=== PATIENT | male | born 1975 | race Caucasian/White ===

== ENCOUNTER 2016-09-22 12:50 | Emergency (ER) | payer SELFPAY ==
[~2016-09-22] VITALS: Ht 167.6 cm; Wt 68.0 kg
[~2016-09-22 12:50] MED LIST: HYDR-2758 PO; HYDR-971 PO; ONDA4TAB10 SL
[2016-09-22] MEDS ORDERED: IV NORMAL SALINE 1000ML BAG 1,000 ML IV SCH (13:20)
--- NOTE | 2016-09-22 13:25 | PHYS DOC ---
Past Medical History Past Medical History: Bipolar, Migraines, Other Additional Past Medical Histor: hx meth use, gastritis, hernia Past Surgical History: Other Additional Past Surgical Histo: L hand, dental Smoking: Cigarettes Alcohol Use: Occasionally Drug Use: Marijuana, Methamphetamine, Other Adult General Chief Complaint Chief Complaint: ABDOMINAL PAIN HPI HPI She is a 41-year-old male who lives his parents who presents with nausea and vomiting and abdominal pain that began early this morning. The pain began suddenly sharp in the right lower quadrant without radiation. He has not had as he claims more than 20 episodes of vomiting nonbilious nonbloody without fevers , chills, diarrhea or loose stools. His migration of his symptoms or back pain. He denies any lightheaded or dizziness, denies any sick contacts, recent travel outside the country, new IV or illicit drug use. Patient also denies having poultry, failing reptiles or eating raw food. Patient says she's had pain around his umbilicus before but nothing like this nothing localized to the right lower quadrant. He has no appetite and feels very anxious. He was brought in by his father. Review of Systems Review of Systems Constitutional: Denies fever or chills [] Eyes: Denies change in visual acuity, redness, or eye pain [] HENT: Denies nasal congestion or sore throat [] Respiratory: Denies cough or shortness of breath [] Cardiovascular: No additional information not addressed in HPI [] GI: She does quit of abdominal pain nausea vomiting without bloody stools or diarrhea no melena or constipation. : Denies dysuria or hematuria [] Musculoskeletal: Denies back pain or joint pain [] Integument: Denies rash or skin lesions [] Neurologic: Denies headache, focal weakness or sensory changes [] Endocrine: Denies polyuria or polydipsia [] Current Medications Current Medications Current Medications Medications (Trade) Dose Ordered Sig/Reina Start Time Stop Time Status Last Admin Dose Admin Hydromorphone HCl (Dilaudid) 1 mg 1X ONCE 09/22/16 16:45 09/22/16 16:45 DC 09/22/16 16:24 1 MG Info (Do NOT chart on this entry -- for MONITORING) 1 each PRN DAILY PRN 09/22/16 14:00 09/22/16 16:38 DC Iohexol (Omnipaque 300 Mg/ml) 75 ml 1X ONCE 09/22/16 14:00 09/22/16 14:01 DC 09/22/16 14:17 75 ML Ondansetron HCl (Zofran) 4 mg 1X ONCE 09/22/16 14:45 09/22/16 14:46 DC Sodium Chloride (Normal Saline Flush) 10 ml QSHIFT PRN 09/22/16 13:30 09/22/16 16:38 DC 09/22/16 13:41 10 ML Allergies Allergies Allergies Coded Allergies Type Severity Reaction Last Updated Verified Benzodiazepines Allergy Unknown 09/26/13 No Penicillins Allergy Unknown 09/26/13 No codeine Allergy Unknown 03/04/16 No cyclobenzaprine Allergy Unknown 09/26/13 No Uncoded Allergies Type Severity Reaction Last Updated Verified steroids Adverse Reaction Unknown 09/26/13 Physical Exam Physical Exam Constitutional: Patient is relatively thin with poor dentition with some temporal wasting. He has some mild truncal obesity HENT: Normocephalic, atraumatic, bilateral external ears normal, dry mucous members with poor dentition. No oral exudates, nose normal. [] Eyes: PERRLA, EOMI, conjunctiva normal, no discharge. [] Neck: Normal range of motion, no tenderness, supple, no stridor. [] Cardiovascular:Heart rate regular rhythm, no murmur [] Lungs & Thorax: Bilateral breath sounds clear to auscultation [] Abdomen: Patient is elevated bowel sounds he has tenderness throughout the right lower quadrant and the epigastric region. No voluntary guarding rebound or organomegaly. He has no Rondon El sign no Pritchett's or McBurney's point tenderness to palpation. Skin: Warm, dry, no erythema, no rash. [] Back: No tenderness, no CVA tenderness. [] Extremities: No tenderness, no cyanosis, no clubbing, ROM intact, no edema. [] Neurologic: Alert and oriented X 3, normal motor function, normal sensory function, no focal deficits noted. [] Psychologic: This patient is very anxious mildly hyperventilated. Current Patient Data Vital Signs Vital Signs Date Time Temp Pulse Resp B/P (MAP) Pulse Ox O2 Delivery O2 Flow Rate FiO2 09/22/16 16:24 Room Air 09/22/16 15:41 54 27 129/68 (88) 100 09/22/16 13:02 98.2 98.2 Lab Values Laboratory Tests Test 09/22/16 13:35 09/22/16 15:00 White Blood Count 14.3 x10^3/uL (4.0-11.0) H Red Blood Count 4.89 x10^6/uL (4.30-5.70) Hemoglobin 13.4 g/dL (13.0-17.5) Hematocrit 39.7 % (39.0-53.0) Mean Corpuscular Volume 81 fL (79-100) Mean Corpuscular Hemoglobin 27 pg (25-35) Mean Corpuscular Hemoglobin Concent 34 g/dL (31-37) Red Cell Distribution Width 21.0 % (11.5-14.5) H Platelet Count 553 x10^3/uL (140-400) H Neutrophils (%) (Auto) 85 % (31-73) H Lymphocytes (%) (Auto) 11 % (24-48) L Monocytes (%) (Auto) 4 % (0-9) Eosinophils (%) (Auto) 0 % (0-3) Basophils (%) (Auto) 1 % (0-3) Neutrophils # (Auto) 12.1 x10^3uL (1.8-7.7) H Lymphocytes # (Auto) 1.5 x10^3/uL (1.0-4.8) Monocytes # (Auto) 0.5 x10^3/uL (0.0-1.1) Eosinophils # (Auto) 0.0 x10^3/uL (0.0-0.7) Basophils # (Auto) 0.1 x10^3/uL (0.0-0.2) Platelet Estimate Increased (ADEQUATE) Anisocytosis Mod Sodium Level 142 mmol/L (136-145) Potassium Level 4.0 mmol/L (3.5-5.1) Chloride Level 102 mmol/L (98-107) Carbon Dioxide Level 24 mmol/L (21-32) Anion Gap 16 (6-14) H Blood Urea Nitrogen 17 mg/dL (8-26) Creatinine 1.2 mg/dL (0.7-1.3) Estimated GFR (Cockcroft-Gault) 66.7 BUN/Creatinine Ratio 14 (6-20) Glucose Level 142 mg/dL (70-99) H Calcium Level 9.9 mg/dL (8.5-10.1) Total Bilirubin 0.5 mg/dL (0.2-1.0) Aspartate Amino Transferase (AST) 23 U/L (15-37) Alanine Aminotransferase (ALT) 19 U/L (16-63) Alkaline Phosphatase 87 U/L (46-116) Total Protein 8.1 g/dL (6.4-8.2) Albumin 4.7 g/dL (3.4-5.0) Albumin/Globulin Ratio 1.4 (1.0-1.7) Lipase 242 U/L (73-393) Urine Color Yellow Urine Clarity Clear Urine pH 8.5 Urine Specific [place] >=1.030 Urine Protein 30 mg/dL (NEG-TRACE) Urine Glucose (UA) Negative mg/dL (NEG) Urine Ketones (Stick) 15 mg/dL (NEG) Urine Blood Negative (NEG) Urine Nitrite Negative (NEG) Urine Bilirubin Negative (NEG) Urine Urobilinogen Dipstick 0.2 mg/dL (0.2 mg/dL) Urine Leukocyte Esterase Negative (NEG) Urine RBC 0 /HPF (0-2) Urine WBC Occ /HPF (0-4) Urine Squamous Epithelial Cells Occ /LPF Urine Bacteria 0 /HPF (0-FEW) Urine Mucus Slight /LPF Laboratory Tests 09/22/16 13:35 Laboratory Tests 09/22/16 13:35 EKG EKG [] Radiology/Procedures Radiology/Procedures [] [address] [place] [address] IMAGING REPORT Signed PATIENT: MANPREET GIFFORD ACCOUNT: [id number] : 1975 LOCATION: ER AGE: 41 SEX: M EXAM STATUS: REG ER ORD. PHYSICIAN: ISAEL COTE MD REASON: lower quadrant abdominal pain that began after vomiting. PROCEDURE: CT ABD PELV W/ IV CONTRST ONLY Indication abdominal pain. Onset today. Vomiting. Axial images through the abdomen and pelvis were obtained. No oral contrast was administered. Approximately 75 cc of Omnipaque 300 was administered intravenously. Note is made of a previous examination 8 years ago. An acute finding in either lung base is not seen. There is a 3 to 4 mm pulmonary nodule in the right lower lobe, image 2 series 2. Follow-up imaging along the lines of the Fleischner criteria should be considered. Nodule is new relative to the previous exam. The liver and spleen appear unremarkable. The gallbladder is largely contracted but otherwise unremarkable. No adrenal or significant renal pathology is seen. There are occasional small bilateral renal calculi. The pancreas appears unremarkable. There is some slight dilatation of small bowel loops. This is nonspecific but could reflect an inflammatory process such as enteritis. A low-grade obstructing process is not entirely excluded. High-grade mechanical obstruction is not suggested on this exam A rudimentary appendix is suggested adjacent to the cecal tip. Imaging findings to suggest appendicitis or absent. IMPRESSION: Mild dilatation of small bowel loops is seen which is nonspecific. This could reflect enteritis. High-grade mechanical obstruction is not seen but a low-grade obstructing process is not entirely excluded Minute bilateral renal calculi 3 to 4 mm pulmonary nodule right lower lobe. Follow-up imaging along the lines of the Fleischner criteria should be considered DICTATED and SIGNED BY: JUDY MARIE MD DATE: 09/22/16 4585 CC: ISAEL COTE MD; NO PCP ~ Course & Med Decision Making Course & Med Decision Making Pertinent Labs and Imaging studies reviewed. (See chart for details) he is a pleasant 41-year-old male was at with nausea vomiting and diarrhea that began is morning with more than 20 episodes of vomiting. Nonbilious nonbloody patient feels dehydrated with diffuse abdominal pain. Now 3:10 PM Patient tells me that their symptoms given during CC are improved. We reviewed labs patient has an elevated white blood cell count but no evidence of hemoconcentration. Patient has an acute phase reactant and platelet count is elevated at 556. Still pending abdomen pelvis CT at this time. Patient abdomen is soft Now 4:[address] abdomen pelvis with the patient which demonstrates signs of enteritis without bowel obstruction, appendicitis, or evidence of diverticulitis. Patient feels markedly better with fluids and antiemetics here in the emergency department he is relieved not have appendicitis. I will discharge him on antiemetics, Bentyl, and antidiarrheal medications with follow-up with his PCP. He also developed some increasing for his anxiety. Impression: Abdominal pain likely secondary to nausea vomiting diarrhea, anxiety Disposition: Discharged home with PCP follow-up in 24-48 hours. Abdominal pain precautions given. Although there is no obvious signs of appendicitis at this time patient given precautions to return of localized pain increased in the right lower quadrant. Patient has fever greater than 102.2 despite treatment or he has no blood in the stool. [] Dragon Disclaimer Dragon Disclaimer This electronic medical record was generated, in whole or in part, using a voice recognition dictation system. Departure Departure Impression: Primary Impression: Abdominal pain Additional Impressions: Nausea & vomiting Diarrhea Disposition: 01 HOME, SELF-CARE Condition: IMPROVED Referrals: NO PCP (PCP) Patient Instructions: Abdominal Pain, Diarrhea, Nausea and Vomiting Additional Instructions: If any new or increasing symptoms or feel any question concerns. I would advise a stay hydrated by forcing herself to drink a lot of fluids much and he can tolerate until he has achieved some clear urine. Please return for any focal tenderness to palpation with fever over the right lower quadrant. Although there is no evidence of appendicitis today this does not mean he can develop in the future. Please return for any question concerns or might have Scripts Ondansetron (ZOFRAN ODT) 4 Mg Tab.rapdis 1 MG PO BID Y for NAUSEA/VOMITING for 7 Days, #10 TAB Prov: ISAEL COTE MD 09/22/16 Loperamide HCl (Imodium A-D) 2 Mg Capsule 2 MG PO QID for 3 Days, #12 CAP Prov: ISAEL COTE MD 09/22/16 Dicyclomine Hcl (BENTYL) 10 Mg Capsule 1 CAP PO TID, #30 CAP 3 Refills Prov: ISAEL COTE MD 09/22/16 Lorazepam (ATIVAN) 1 Mg Tablet 1 MG PO BID for 5 Days, #10 TAB Prov: ISAEL COTE MD 09/22/16 Problem Qualifiers ISAEL COTE MD Sep 22, 2016 13:25
[2016-09-22] MEDS ORDERED: 0.9 % SODIUM CHLORIDE 10 ML DISP.SYRIN. IV PRN (13:30)
[2016-09-22] MEDS ORDERED: ONDANSETRON PF 4 MG/2 ML VIAL. IV ONE ×3 (13:30→14:45)
[2016-09-22] MEDS ORDERED: HYDROmorphone 2 MG/ML VIAL IV/SQ PRN (13:30)
[2016-09-22 13:50] LABS: CALCIUM 9.9 mg/dL (8.5-10.1); CREATININE 1.2 mg/dL (0.7-1.3); GFR 66.7
[2016-09-22 13:53] LABS: BASO # 0.1 x10^3/uL (0.0-0.2); BASO % 1 % (0-3); EOS % 0 % (0-3); HEMATOCRIT 39.7 % (39.0-53.0); HEMOGLOBIN 13.4 g/dL (13.0-17.5); LYMPH # 1.5 x10^3/uL (1.0-4.8); LYMPH % 11 % (24-48); MEAN CORPUSCULAR HEMOGLOBIN 27 pg (25-35); MEAN CORPUSCULAR HGB CONC 34 g/dL (31-37); MEAN CORPUSCULAR VOLUME 81 fL (79-100); MONO % 4 % (0-9); NEUT % 85 % (31-73); PLATELET COUNT 553 x10^3/uL (140-400); RED BLOOD COUNT 4.89 x10^6/uL (4.30-5.70); WHITE BLOOD COUNT 14.3 x10^3/uL (4.0-11.0)
[2016-09-22 13:55] LABS: ALBUMIN 4.7 g/dL (3.4-5.0); ALBUMIN/GLOBULIN RATIO 1.4 (1.0-1.7); TOTAL BILIRUBIN 0.5 mg/dL (0.2-1.0); TOTAL PROTEIN 8.1 g/dL (6.4-8.2)
[2016-09-22] MEDS ORDERED: CONTRAST GIVEN MC PRN (14:00)
[2016-09-22] MEDS ORDERED: IOHEXOL 300 MG/ML 75 ML VIAL IV ONE (14:00)
--- NOTE | 2016-09-22 14:49 | RAD ---
Indication abdominal pain. Onset today. Vomiting. Axial images through the abdomen and pelvis were obtained. No oral contrast was administered. Approximately 75 cc of Omnipaque 300 was administered intravenously. Note is made of a previous examination 8 years ago. An acute finding in either lung base is not seen. There is a 3 to 4 mm pulmonary nodule in the right lower lobe, image 2 series 2. Follow-up imaging along the lines of the Fleischner criteria should be considered. Nodule is new relative to the previous exam. The liver and spleen appear unremarkable. The gallbladder is largely contracted but otherwise unremarkable. No adrenal or significant renal pathology is seen. There are occasional small bilateral renal calculi. The pancreas appears unremarkable. There is some slight dilatation of small bowel loops. This is nonspecific but could reflect an inflammatory process such as enteritis. A low-grade obstructing process is not entirely excluded. High-grade mechanical obstruction is not suggested on this exam A rudimentary appendix is suggested adjacent to the cecal tip. Imaging findings to suggest appendicitis or absent. IMPRESSION: Mild dilatation of small bowel loops is seen which is nonspecific. This could reflect enteritis. High-grade mechanical obstruction is not seen but a low-grade obstructing process is not entirely excluded Minute bilateral renal calculi 3 to 4 mm pulmonary nodule right lower lobe. Follow-up imaging along the lines of the Fleischner criteria should be considered
[2016-09-22 15:10] LABS: BILIRUBIN,URINE NEGATIVE (NEG); GLUCOSE,URINE NEGATIVE (NEG); NITRITE,URINE NEGATIVE (NEG); PH,URINE 8.5; PROTEIN,URINE 30 mg/dL (NEG-TRACE); UROBILINOGEN,URINE 0.2 mg/dL (0.2 mg/dL)
[2016-09-22 15:41] VITALS: BP 129/68
[2016-09-22 15:50] LABS: BACTERIA,URINE 0 /HPF (0-FEW); RBC,URINE 0 /HPF (0-2); SQUAMOUS EPITHELIAL CELL,UR OCC /LPF; WBC,URINE OCC /HPF (0-4)
[2016-09-22 16:01] LABS: PLT ESTIMATE INCREASED (ADEQUATE)
[2016-09-22 16:02] LABS: ANISOCYTOSIS MOD
[2016-09-22] MEDS ORDERED: DICY10CA53 PO (16:23)
[2016-09-22] MEDS ORDERED: LOPE2CAP88 PO (16:23)
[2016-09-22] MEDS ORDERED: ONDA4TAB10 PO (16:23)
[2016-09-22] MEDS ORDERED: LORA-434 PO (16:23)
[2016-09-22] MEDS ORDERED: HYDROmorphone 2 MG/ML VIAL IV ONE (16:45)
== END 2016-09-22 16:32 | disposition home or self-care (01) ==
LOC: ER 12:50
DX: R10.31 Right lower quadrant pain (principal); R10.13 Epigastric pain; R10.84 Generalized abdominal pain; R11.2 Nausea with vomiting, unspecified; R19.7 Diarrhea, unspecified; F31.9 Bipolar disorder, unspecified; G43.909 Migraine, unspecified, not intractable, without status migrainosus; F12.10 Cannabis abuse, uncomplicated; F15.10 Other stimulant abuse, uncomplicated; F17.210 Nicotine dependence, cigarettes, uncomplicated; E66.9 Obesity, unspecified; Z88.8 Allergy status to other drugs, medicaments and biological substances; Z88.0 Allergy status to penicillin; Z88.5 Allergy status to narcotic agent; Z68.24 Body mass index [BMI] 24.0-24.9, adult
CPT/HCPCS: 36415; 74177; 80053; 81001; 83690; 85007; 85027; 96361; 96374; 96375; 96376; 99285; J1170; J2405; J7030; Q9967

== ENCOUNTER 2016-12-19 19:01 | Emergency (ER) | payer SELFPAY ==
[~2016-12-19] VITALS: Ht 167.6 cm; Wt 68.0 kg
[~2016-12-19 19:01] MED LIST changes: +DICY10CA53 PO; +LOPE2CAP88 PO; +LORA-434 PO; +ONDA4TAB10 PO
[2016-12-19 19:07] VITALS: BP 151/93
[2016-12-19] MEDS ORDERED: KETOROLAC 60 MG/2 ML INJ. IM ONE (19:30)
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
== END 2016-12-19 20:37 | disposition home or self-care (01) ==
LOC: ER 19:01
DX: S16.1XXA Strain of muscle, fascia and tendon at neck level, initial encounter (principal); S00.83XA Contusion of other part of head, initial encounter; S00.532A Contusion of oral cavity, initial encounter; B02.9 Zoster without complications; G43.909 Migraine, unspecified, not intractable, without status migrainosus; F31.9 Bipolar disorder, unspecified; Z88.5 Allergy status to narcotic agent; Z88.8 Allergy status to other drugs, medicaments and biological substances; Z88.0 Allergy status to penicillin; V43.62XA Car passenger injured in collision with other type car in traffic accident, initial encounter; Y93.89 Activity, other specified; Y92.410 Unspecified street and highway as the place of occurrence of the external cause; Y99.8 Other external cause status
CPT/HCPCS: 70450; 72125; 96372; 99284; J1885

== ENCOUNTER 2017-02-05 19:15 | Emergency (ER) | payer SELFPAY ==
[~2017-02-05] VITALS: Ht 167.6 cm; Wt 71.7 kg
[2017-02-05] MEDS ORDERED: LIDO:MAALOX:DONNATAL 1:1:1 15 ML SINGLE DOSE SWSW ONE (19:45)
[2017-02-05] MEDS ORDERED: IV NORMAL SALINE 500ML BAG 500 ML IV ONE (19:45)
[2017-02-05 19:49] LABS: BASO # 0.1 x10^3/uL (0.0-0.2); BASO % 1 % (0-3); EOS % 3 % (0-3); HEMATOCRIT 35.7 % (39.0-53.0); HEMOGLOBIN 12.1 g/dL (13.0-17.5); LYMPH # 3.2 x10^3/uL (1.0-4.8); LYMPH % 31 % (24-48); MEAN CORPUSCULAR HEMOGLOBIN 30 pg (25-35); MEAN CORPUSCULAR HGB CONC 34 g/dL (31-37); MEAN CORPUSCULAR VOLUME 88 fL (79-100); MONO % 6 % (0-9); NEUT % 60 % (31-73); PLATELET COUNT 493 x10^3/uL (140-400); RED BLOOD COUNT 4.08 x10^6/uL (4.30-5.70); RED CELL DISTRIBUTION WIDTH 16.6 % (11.5-14.5); WHITE BLOOD COUNT 10.4 x10^3/uL (4.0-11.0)
[2017-02-05 19:51] LABS: BILIRUBIN,URINE NEGATIVE (NEG); GLUCOSE,URINE NEGATIVE (NEG); NITRITE,URINE NEGATIVE (NEG); PH,URINE 7.5; PROTEIN,URINE NEGATIVE (NEG-TRACE); UROBILINOGEN,URINE 0.2 mg/dL (0.2 mg/dL)
[2017-02-05 20:02] LABS: ANION GAP 8 (6-14); BLOOD UREA NITROGEN 15 mg/dL (8-26); CALCIUM 9.5 mg/dL (8.5-10.1); CARBON DIOXIDE 30 mmol/L (21-32); CHLORIDE 102 mmol/L (98-107); CREATININE 1.2 mg/dL (0.7-1.3); GFR 66.4; GLUCOSE 98 mg/dL (70-99); POTASSIUM 4.3 mmol/L (3.5-5.1); SODIUM 140 mmol/L (136-145)
[2017-02-05 20:02] LABS: BACTERIA,URINE 0 /HPF (0-FEW); RBC,URINE 0 /HPF (0-2); WBC,URINE 0 /HPF (0-4)
[2017-02-05 20:27] LABS: ALBUMIN 3.9 g/dL (3.4-5.0); ALK PHOS 77 U/L (46-116); ALT (SGPT) 25 U/L (16-63); AST (SGOT) 22 U/L (15-37); DIRECT BILIRUBIN < 0.1 mg/dL (0.0-0.2); TOTAL BILIRUBIN 0.1 mg/dL (0.2-1.0); TOTAL PROTEIN 6.6 g/dL (6.4-8.2)
--- NOTE | 2017-02-05 20:37 | PHYS DOC ---
Past Medical History Past Medical History: Anxiety, Bipolar, Depression Additional Past Medical Histor: "hernia" (epigastric area); Substance Abuse ( METH, BENZOS, OPIATES) Past Surgical History: Other Additional Past Surgical Histo: LEFT HAND Alcohol Use: Sober Additional Information: states he has been sober from ETOH, METH, & OPIATES for past 14 days Drug Use: Other Social History Narrative: states sober from ETOH, METH, & OPIATES x 14 days; Marijuana 8 days Adult General Chief Complaint Chief Complaint: ABDOMINAL PAIN HPI HPI This is a pleasant 42-year-old male presenting to the emergency department today with epigastric abdominal pain that he describes as a sharp shooting pain. It is nonradiating intermittent and without alleviating factors. He currently takes Tums and ranitidine. He describes the pain is moderate. He denies nausea or vomiting. He denies fevers or chills. Review of systems is negative for chest pain shortness of breath diarrhea constipation or blood in stools. All other review of systems is negative unless otherwise noted in history of present illness. ED course: 42-year-old male presenting with epigastric abdominal pain. Upon arrival the patient is afebrile with normal heart rate. Mild elevation of blood pressure. On physical exam: Soft nontender abdomen without rebound tenderness or guarding present. Negative McBurneys point. Negative Pritchett sign. No ecchymosis present. Otherwise remainder of his examination is unremarkable. Blood work obtained which was unremarkable. Patient is given a GI cocktail which improved his symptoms. The patient was then discharged home in stable condition to follow up with their primary care physician over the next 2-3 days. They were to return if their symptoms worsened or if they were concerned for any reason. [id number] discharge instructions and return precautions were given. Patient's questions were answered to their satisfaction. Patient is comfortable plan. Review of Systems Review of Systems SEE ABOVE. Current Medications Current Medications Current Medications Medications (Trade) Dose Ordered Sig/Reina Start Time Stop Time Status Last Admin Dose Admin Multi-Ingredient Mouthwash/Gargle (Gi Cocktail Single Dose) 15 ml 1X ONCE 02/05/17 19:45 02/05/17 19:46 DC 02/05/17 20:18 15 ML Sodium Chloride 500 ml @ 500 mls/hr 1X ONCE 02/05/17 19:45 02/05/17 20:44 DC 02/05/17 20:19 500 MLS/HR Allergies Allergies Allergies Coded Allergies Type Severity Reaction Last Updated Verified Benzodiazepines Allergy Unknown 09/26/13 No Penicillins Allergy Unknown 09/26/13 No codeine Allergy Unknown 03/04/16 No cyclobenzaprine Allergy Unknown 09/26/13 No Uncoded Allergies Type Severity Reaction Last Updated Verified steroids Adverse Reaction Unknown 09/26/13 Physical Exam Physical Exam SEE ABOVE Constitutional: Well developed, well nourished, no acute distress, non-toxic appearance. [] HENT: Normocephalic, atraumatic, bilateral external ears normal, oropharynx moist, no oral exudates, nose normal. [] Eyes: PERRLA, EOMI, conjunctiva normal, no discharge. [] Neck: Normal range of motion, no tenderness, supple, no stridor. [] Cardiovascular:Heart rate regular rhythm, no murmur [] Lungs & Thorax: Bilateral breath sounds clear to auscultation [] Abdomen: Bowel sounds normal, soft, no tenderness, no masses, no pulsatile masses. [] Skin: Warm, dry, no erythema, no rash. [] Back: No tenderness, no CVA tenderness. [] Extremities: No tenderness, no cyanosis, no clubbing, ROM intact, no edema. [] Neurologic: Alert and oriented X 3, normal motor function, normal sensory function, no focal deficits noted. [] Psychologic: Affect normal, judgement normal, mood normal. [] Current Patient Data Vital Signs Vital Signs Date Time Temp Pulse Resp B/P (MAP) Pulse Ox O2 Delivery O2 Flow Rate FiO2 02/05/17 20:13 73 18 139/96 (110) 97 Room Air 02/05/17 19:20 98.6 98.6 Lab Values Laboratory Tests Test 02/05/17 19:23 02/05/17 19:36 Urine Collection Type Unknown Urine Color Yellow Urine Clarity Clear Urine pH 7.5 Urine Specific [place] 1.015 Urine Protein Negative mg/dL (NEG-TRACE) Urine Glucose (UA) Negative mg/dL (NEG) Urine Ketones (Stick) Negative mg/dL (NEG) Urine Blood Negative (NEG) Urine Nitrite Negative (NEG) Urine Bilirubin Negative (NEG) Urine Urobilinogen Dipstick 0.2 mg/dL (0.2 mg/dL) Urine Leukocyte Esterase Negative (NEG) Urine RBC 0 /HPF (0-2) Urine WBC 0 /HPF (0-4) Urine Amorphous Sediment Present /HPF Urine Bacteria 0 /HPF (0-FEW) White Blood Count 10.4 x10^3/uL (4.0-11.0) Red Blood Count 4.08 x10^6/uL (4.30-5.70) L Hemoglobin 12.1 g/dL (13.0-17.5) L Hematocrit 35.7 % (39.0-53.0) L Mean Corpuscular Volume 88 fL (79-100) Mean Corpuscular Hemoglobin 30 pg (25-35) Mean Corpuscular Hemoglobin Concent 34 g/dL (31-37) Red Cell Distribution Width 16.6 % (11.5-14.5) H Platelet Count 493 x10^3/uL (140-400) H Neutrophils (%) (Auto) 60 % (31-73) Lymphocytes (%) (Auto) 31 % (24-48) Monocytes (%) (Auto) 6 % (0-9) Eosinophils (%) (Auto) 3 % (0-3) Basophils (%) (Auto) 1 % (0-3) Neutrophils # (Auto) 6.2 x10^3uL (1.8-7.7) Lymphocytes # (Auto) 3.2 x10^3/uL (1.0-4.8) Monocytes # (Auto) 0.6 x10^3/uL (0.0-1.1) Eosinophils # (Auto) 0.3 x10^3/uL (0.0-0.7) Basophils # (Auto) 0.1 x10^3/uL (0.0-0.2) Sodium Level 140 mmol/L (136-145) Potassium Level 4.3 mmol/L (3.5-5.1) Chloride Level 102 mmol/L (98-107) Carbon Dioxide Level 30 mmol/L (21-32) Anion Gap 8 (6-14) Blood Urea Nitrogen 15 mg/dL (8-26) Creatinine 1.2 mg/dL (0.7-1.3) Estimated GFR (Cockcroft-Gault) 66.4 Glucose Level 98 mg/dL (70-99) Calcium Level 9.5 mg/dL (8.5-10.1) Total Bilirubin 0.1 mg/dL (0.2-1.0) L Direct Bilirubin < 0.1 mg/dL (0.0-0.2) Aspartate Amino Transferase (AST) 22 U/L (15-37) Alanine Aminotransferase (ALT) 25 U/L (16-63) Alkaline Phosphatase 77 U/L (46-116) Troponin I Quantitative < 0.017 ng/mL (0.000-0.055) Total Protein 6.6 g/dL (6.4-8.2) Albumin 3.9 g/dL (3.4-5.0) Lipase 279 U/L (73-393) Laboratory Tests 02/05/17 19:36 Laboratory Tests 02/05/17 19:36 EKG EKG []Sinus rhythm with a regular rate. ST segments are congruent. Not suggestive of ACS. Radiology/Procedures Radiology/Procedures [] Course & Med Decision Making Course & Med Decision Making Pertinent Labs and Imaging studies reviewed. (See chart for details) [] Dragon Disclaimer Dragon Disclaimer This electronic medical record was generated, in whole or in part, using a voice recognition dictation system. Departure Departure Impression: Primary Impression: Abdominal pain Disposition: HOME, SELF-CARE Condition: STABLE Referrals: NO PCP (PCP) Patient Instructions: Abdominal Pain (Nonspecific) Additional Instructions: Thank you for allowing us to participate in your care today. Followup with your primary care physician in 3 days if your symptoms do not improve. Call your Primary Doctor tomorrow and inform them of your visit today. If you do not have a primary care provider you can ask for a list of our primary care providers. Return to the emergency department you have any new or concerning findings. This should be evaluated by the primary care physician and any necessary consulting services for continued management within a few days after discharge. Return to emergency room if you have any new or concerning symptoms including but not limited to fever, chills, nausea, vomiting, intractable pain, any new rashes, chest pain, shortness of air, uncontrolled bleeding, difficulty breathing, and/or vision loss. Scripts Famotidine (PEPCID) 40 Mg Tablet 40 MG PO HS, #14 TAB 0 Refills Prov: ULISES CERON MD 02/05/17 ULISES CERON MD Feb 05, 2017 20:37
[2017-02-05] MEDS ORDERED: FAMO40TA57 PO (20:41)
[2017-02-05 20:55] VITALS: BP 132/82
--- NOTE | 2017-02-06 06:26 | EKG ---
[facility] [address] [place] [address] Test Date: 2017-02-05 Test Time: 19:51:34 Pat Name: MANPREET GIFFORD Department: Room: Gender: M Construction Equipment Mechanic Helper: : 1975 Requested By: ULISES CERON Order Number: [id number] Reading MD: Jonny Bhat MD Measurements Intervals [place] Rate: 72 P: 48 [place]: 152 QRS: 24 QRSD: 82 T: 24 QT: 368 QTc: 404 Interpretive Statements SINUS RHYTHM Electronically Signed On 02-10-2017 15:25:22 MANUAL TRAINING TEACHER by Jonny Bhat MD
== END 2017-02-05 21:22 | disposition home or self-care (01) ==
LOC: ER 19:15
DX: R10.13 Epigastric pain (principal); F41.9 Anxiety disorder, unspecified; F31.9 Bipolar disorder, unspecified; F11.10 Opioid abuse, uncomplicated; F15.10 Other stimulant abuse, uncomplicated; F13.10 Sedative, hypnotic or anxiolytic abuse, uncomplicated; Z88.8 Allergy status to other drugs, medicaments and biological substances; Z88.0 Allergy status to penicillin; Z88.5 Allergy status to narcotic agent
CPT/HCPCS: 36415; 80048; 80076; 81001; 83690; 84484; 85025; 93005; 96360; 99285; J7040

== ENCOUNTER 2017-08-10 09:59 | Emergency (ER) | payer SELFPAY ==
[2017-08-10] MEDS: DIPHTH,PERTUSS(ACELL),TET TOX 0.5 ML DISP.SYRIN. VAX IM (10:29)
== END 2017-08-10 10:54 | disposition home or self-care (01) ==
LOC: ER 09:59
DX: T25.222A Burn of second degree of left foot, initial encounter (principal); T25.212A Burn of second degree of left ankle, initial encounter; F41.9 Anxiety disorder, unspecified; F31.9 Bipolar disorder, unspecified; Z88.0 Allergy status to penicillin; Z88.5 Allergy status to narcotic agent; Z88.8 Allergy status to other drugs, medicaments and biological substances
CPT/HCPCS: 16020; 90471; 90715; 99283; 99284

== ENCOUNTER 2017-11-11 13:59 | Emergency (ER) | payer SELFPAY ==
[~2017-11-11] VITALS: Ht 167.6 cm; Wt 72.1 kg
[~2017-11-11 13:59] MED LIST changes: +FAMO40TA57 PO; +IBUP-1060 PO; +SILV20CR14 TP
[2017-11-11 15:05] VITALS: BP 130/75
[2017-11-11] MEDS ORDERED: TIZA2TAB PO (15:28)
[2017-11-11] MEDS ORDERED: IBUP-1060 PO (15:28)
--- NOTE | 2017-11-11 15:28 | PHYS DOC ---
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 Patient denies any known injury. States pain is worse on certain movements. He states he has tried [id number] medications with no relief. Patient denies any loss of bowel bladder function. Denies any numbness or tingling to bilateral lower extremities. Review of Systems Review of Systems Constitutional: Denies fever or chills [] Musculoskeletal: Reports low back pain Integument: Denies rash or skin lesions [] Neurologic: Denies headache, focal weakness or sensory changes [] All other systems were reviewed and found to be within normal limits, except as documented in this note. Allergies Allergies Allergies Coded Allergies Type Severity Reaction Last Updated Verified Benzodiazepines Allergy Unknown 09/26/13 No Penicillins Allergy Unknown 09/26/13 No codeine Allergy Unknown 03/04/16 No cyclobenzaprine Allergy Unknown 09/26/13 No Uncoded Allergies Type Severity Reaction Last Updated Verified steroids Adverse Reaction Unknown 09/26/13 Physical Exam Physical Exam Constitutional: Well developed, well nourished, no acute distress, non-toxic appearance. [] Skin: Warm, dry, no erythema, no rash. [] Back: Diffuse paraspinal muscle tenderness to bilateral lumbar spine with slight midline tenderness, no CVA tenderness. [] Extremities: No tenderness, no cyanosis, no clubbing, ROM intact, no edema. [] Neurologic: Alert and oriented X 3, normal motor function, normal sensory function, no focal deficits noted. [] Psychologic: Affect normal, judgement normal, mood normal. [] Current Patient Data Vital Signs Vital Signs Date Time Temp Pulse Resp B/P (MAP) Pulse Ox O2 Delivery O2 Flow Rate FiO2 11/11/17 15:05 98.8 74 18 130/75 (93) 99 Room Air 98.8 EKG EKG [] Radiology/Procedures Radiology/Procedures [] Course & Med Decision Making Course & Med Decision Making Pertinent Labs and Imaging studies reviewed. (See chart for details) This is a 42-year-old male patient presenting to the ED today with complaints of low back pain, no known injury. Patient has no cauda equina syndrome symptoms. Will be discharged with Tizanidine and 12 tablets and ibuprofen. Follow-up with PCP in 1-2 weeks. Heat recommended to the back. Staff Physician Addendum: I was working in the ER during the course of this patient's visit. I was available for consultation as needed, but I was not directly involved in the care of this patient. Dragon Disclaimer Dragon Disclaimer This electronic medical record was generated, in whole or in part, using a voice recognition dictation system. Departure Departure Impression: Primary Impression: Low back pain Disposition: 01 HOME, SELF-CARE Condition: STABLE Referrals: NO PCP (PCP) follow up with your doctor next week Patient Instructions: Back Pain, Adult, [id number] Additional Instructions: You were evaluated in the emergency room for back pain. Take the prescribed medications as ordered. Follow-up with your own doctor in 1-2 weeks. Come back to the ED at any point symptoms worsen. You can apply heat to your back. Scripts Ibuprofen (IBUPROFEN) 800 Mg Tablet 800 MG PO PRN Q6HRS PRN for INFLAMMATION, #14 TAB Prov: RAEGAN RON APRN 11/11/17 Tizanidine Hcl (TIZANIDINE HCL) 2 Mg Tablet 2 MG PO TID PRN for MUSCLE SPASMS, #14 TAB Prov: RAEGAN RON APRN 11/11/17 Problem Qualifiers Primary Impression: Low back pain Chronicity: acute Back pain laterality: bilateral Sciatica presence: without sciatica Qualified Codes: M54.5 - Low back pain RAEGAN RON APRN Nov 11, 2017 15:28 ALEJANDRA ABEBE MD Nov 13, 2017 20:37
== END 2017-11-11 15:33 | disposition home or self-care (01) ==
LOC: ER 13:59
DX: M54.5 Low back pain (principal); F41.9 Anxiety disorder, unspecified; F31.9 Bipolar disorder, unspecified; G43.909 Migraine, unspecified, not intractable, without status migrainosus; Z88.0 Allergy status to penicillin; Z88.5 Allergy status to narcotic agent; Z88.8 Allergy status to other drugs, medicaments and biological substances
CPT/HCPCS: 99283

== ENCOUNTER 2018-08-09 13:33 | Emergency (ER) | payer BC, SELFPAY ==
[~2018-08-09] VITALS: Ht 167.6 cm; Wt 67.1 kg
[~2018-08-09 13:33] MED LIST changes: -HYDR-2758 PO; +HYDR-2761 PO; +HYDR-3164 PO; -HYDR-971 PO; +TIZA2TAB PO
[2018-08-09] MEDS ORDERED: KETOROLAC 30 MG/ML VIAL. IV ONE (14:00)
[2018-08-09 14:05] LABS: BASO # 0.1 x10^3/uL (0.0-0.2); BASO % 0 % (0-3); EOS % 0 % (0-3); HEMATOCRIT 40.1 % (39.0-53.0); HEMOGLOBIN 13.8 g/dL (13.0-17.5); LYMPH # 2.8 x10^3/uL (1.0-4.8); LYMPH % 16 % (24-48); MEAN CORPUSCULAR HEMOGLOBIN 31 pg (25-35); MEAN CORPUSCULAR HGB CONC 34 g/dL (31-37); MEAN CORPUSCULAR VOLUME 90 fL (79-100); MONO # 0.7 x10^3/uL (0.0-1.1); MONO % 4 % (0-9); NEUT # 13.7 x10^3uL (1.8-7.7); NEUT % 80 % (31-73); PLATELET COUNT 457 x10^3/uL (140-400); RED BLOOD COUNT 4.45 x10^6/uL (4.30-5.70); RED CELL DISTRIBUTION WIDTH 13.2 % (11.5-14.5); WHITE BLOOD COUNT 17.2 x10^3/uL (4.0-11.0)
--- NOTE | 2018-08-09 14:09 | PHYS DOC ---
Past Medical History Past Medical History: Anxiety, Bipolar, Depression, Migraines Additional Past Medical Histor: "hernia" (epigastric area); Substance Abuse (METH, BENZOS, OPIATES) Past Surgical History: Other Additional Past Surgical Histo: LEFT HAND Alcohol Use: Sober Drug Use: None Adult General Chief Complaint Chief Complaint: CHEST PAIN HPI HPI Patient is a 43 year old male with history of bipolar disorder who presents with complaining of chest pain. Patient complaining of intermittent episodes of left anterior lower chest pain since yesterday as a sharp pain that last about 4- rated her pain 5 minutes and repeated frequently. Patient rated his pain for over 10 and complaining of nausea, palpitation, dizziness without shortness of breath. Patient states he recently treated with prednisone for skin rash and face G Jos and anxious. Patient denies using methamphetamines since 2017. Patient does not have cardiac risk factors except for smoking cigarettes. Review of Systems Review of Systems Constitutional: Denies fever or chills [] Eyes: Denies change in visual acuity, redness, or eye pain [] HENT: Denies nasal congestion or sore throat [] Respiratory: Denies cough or shortness of breath [] Cardiovascular: No additional information not addressed in HPI [] GI: Denies abdominal pain, vomiting, bloody stools or diarrhea , reports nausea[] : Denies dysuria or hematuria [] Musculoskeletal: Denies back pain or joint pain [] Integument: Denies rash or skin lesions [] Neurologic: Denies headache, focal weakness or sensory changes [] Endocrine: Denies polyuria or polydipsia [] All other systems were reviewed and found to be within normal limits, except as documented in this note. Current Medications Current Medications Current Medications Medications (Trade) Dose Ordered Sig/[facility] Start Time Stop Time Status Last Admin Dose Admin Ketorolac Tromethamine (Toradol 30mg Vial) 30 mg 1X ONCE 08/09/18 14:00 08/09/18 14:02 DC 08/09/18 14:18 30 MG Allergies Allergies Allergies Coded Allergies Type Severity Reaction Last Updated Verified Benzodiazepines Allergy Intermediate 08/09/18 No Penicillins Allergy Intermediate 08/09/18 No codeine Allergy Intermediate 08/09/18 No cyclobenzaprine Allergy Intermediate 08/09/18 No Uncoded Allergies Type Severity Reaction Last Updated Verified steroids Adverse Reaction Unknown 09/26/13 Physical Exam Physical Exam Constitutional: Well nourished, mild distress, non-toxic appearance. [] HENT: Normocephalic, atraumatic, oropharynx moist. Eyes: PERRLA, EOMI, conjunctiva normal, no discharge. [] Neck: Normal range of motion, no tenderness, supple, no stridor. [] Cardiovascular:Heart rate regular rhythm, no murmur [] Lungs & Thorax: Bilateral breath sounds clear to auscultation , reproducible left chest wall pain.[] Abdomen: Bowel sounds normal, soft, no tenderness, no masses, no pulsatile masses. [] Skin: Warm, dry, no erythema, no rash. [] Back: No tenderness, no CVA tenderness. [] Extremities: No tenderness, no cyanosis, no clubbing, ROM intact, no edema. [] Neurologic: Alert and oriented X 3, normal motor function, normal sensory function, no focal deficits noted. [] Psychologic: Affect anxious, mood normal. [] Current Patient Data Vital Signs Vital Signs Date Time Temp Pulse Resp B/P (MAP) Pulse Ox O2 Delivery O2 Flow Rate FiO2 08/09/18 14:39 70 20 133/65 (87) 96 Room Air 08/09/18 13:35 98.7 98.7 Lab Values Laboratory Tests Test 08/09/18 13:43 08/09/18 14:04 White Blood Count 17.2 x10^3/uL (4.0-11.0) H Red Blood Count 4.45 x10^6/uL (4.30-5.70) Hemoglobin 13.8 g/dL (13.0-17.5) Hematocrit 40.1 % (39.0-53.0) Mean Corpuscular Volume 90 fL (79-100) Mean Corpuscular Hemoglobin 31 pg (25-35) Mean Corpuscular Hemoglobin Concent 34 g/dL (31-37) Red Cell Distribution Width 13.2 % (11.5-14.5) Platelet Count 457 x10^3/uL (140-400) H Neutrophils (%) (Auto) 80 % (31-73) H Lymphocytes (%) (Auto) 16 % (24-48) L Monocytes (%) (Auto) 4 % (0-9) Eosinophils (%) (Auto) 0 % (0-3) Basophils (%) (Auto) 0 % (0-3) Neutrophils # (Auto) 13.7 x10^3uL (1.8-7.7) H Lymphocytes # (Auto) 2.8 x10^3/uL (1.0-4.8) Monocytes # (Auto) 0.7 x10^3/uL (0.0-1.1) Eosinophils # (Auto) 0.0 x10^3/uL (0.0-0.7) Basophils # (Auto) 0.1 x10^3/uL (0.0-0.2) Platelet Estimate Pending Sodium Level 138 mmol/L (136-145) Potassium Level 3.8 mmol/L (3.5-5.1) Chloride Level 101 mmol/L (98-107) Carbon Dioxide Level 25 mmol/L (21-32) Anion Gap 12 (6-14) Blood Urea Nitrogen 21 mg/dL (8-26) Creatinine 1.0 mg/dL (0.7-1.3) Estimated GFR (Cockcroft-Gault) 81.6 BUN/Creatinine Ratio 21 (6-20) H Glucose Level 97 mg/dL (70-99) Calcium Level 9.5 mg/dL (8.5-10.1) Total Bilirubin 0.3 mg/dL (0.2-1.0) Aspartate Amino Transferase (AST) 15 U/L (15-37) Alanine Aminotransferase (ALT) 22 U/L (16-63) Alkaline Phosphatase 77 U/L (46-116) Creatine Kinase 156 U/L (39-308) Troponin I Quantitative < 0.017 ng/mL (0.000-0.055) Total Protein 7.2 g/dL (6.4-8.2) Albumin 4.2 g/dL (3.4-5.0) Albumin/Globulin Ratio 1.4 (1.0-1.7) Urine Opiates Screen Pos (NEG) Urine Methadone Screen Neg (NEG) Urine Barbiturates Neg (NEG) Urine Phencyclidine Screen Neg (NEG) Urine Amphetamine/Methamphetamine Neg (NEG) Urine Benzodiazepines Screen Pos (NEG) Urine Cocaine Screen Neg (NEG) Urine Cannabinoids Screen Pos (NEG) Urine Ethyl Alcohol Neg (NEG) Laboratory Tests 08/09/18 13:43 Laboratory Tests 08/09/18 13:43 EKG EKG EKG Interpreted by me. EKG at 1345 showed number sinus rhythm at rate of 66, artifact, poor R-wave progress in anteroseptal leads, no acute ST and T-wave abnormalities. Radiology/Procedures Radiology/Procedures Chest x-ray interpreted by me and did not show acute finding.[] Course & Med Decision Making Course & Med Decision Making Pertinent Labs and Imaging studies reviewed. (See chart for details) Evaluation of patient in ER showed 42-year-old male patient with complaining of intermittent episodes of chest pain since yesterday. Patient had history of substance abuse and nontender influence of drugs. Labs and EKG was unremarkable except for white count of 17,000 and positive UDS for opiates, benzos, marijuana. Patient treated with Toradol and felt better. Plan discharge patient home with diagnose of musculoskeletal chest pain and substance abuse. Dragon Disclaimer Dragon Disclaimer This electronic medical record was generated, in whole or in part, using a voice recognition dictation system. Departure Departure Impression: Primary Impression: Musculoskeletal chest pain Additional Impressions: Substance abuse Anxiety Disposition: 01 HOME, SELF-CARE (at 1524) Condition: IMPROVED Referrals: NO PCP (PCP) Patient Instructions: Chest Wall Pain, Muscle Strain, Substance Abuse-Brief Additional Instructions: Drink plenty of liquids Follow-up with your primary care physician in 3-5 days Return to ER if not getting better Scripts Naproxen (NAPROSYN) 500 Mg Tablet 1 TAB PO BID for pain, #20 TAB Prov: HEBER LLOYD MD 08/09/18 Problem Qualifiers HEBER LLOYD MD Aug 09, 2018 14:09
[2018-08-09 14:23] LABS: BARBITURATES NEG (NEG); BENZODIAZEPINES POS (NEG); CANNABINOIDS POS (NEG); COCAINE NEG (NEG); METHADONE NEG (NEG); OPIATES POS (NEG); PHENCYCLIDINE NEG (NEG)
[2018-08-09 14:25] LABS: AMPHETAMINE/METHAMPHETAMINE NEG (NEG)
[2018-08-09 14:30] LABS: CALCIUM 9.5 mg/dL (8.5-10.1); GFR 81.6; POTASSIUM 3.8 mmol/L (3.5-5.1)
[2018-08-09 14:35] LABS: ALBUMIN 4.2 g/dL (3.4-5.0); ALBUMIN/GLOBULIN RATIO 1.4 (1.0-1.7); TOTAL BILIRUBIN 0.3 mg/dL (0.2-1.0); TOTAL PROTEIN 7.2 g/dL (6.4-8.2)
[2018-08-09 14:39] VITALS: BP 133/65
--- NOTE | 2018-08-09 15:22 | RAD ---
EXAM: CHEST 2 VIEWS. HISTORY: Chest pain. COMPARISON: 03/04/2016. FINDINGS: Frontal and lateral views of the chest are obtained. There are no confluent infiltrates. There is no pneumothorax or pleural effusion. The heart is not enlarged. IMPRESSION: 1. No confluent infiltrates. Electronically signed by: Karmen Su MD (08/09/2018 3:17 PM) [facility]
--- NOTE | 2018-08-09 15:22 | EKG ---
[facility] [address] [place] [address] Test Date: 2018-08-09 Test Time: 13:45:17 Pat Name: MANPREET GIFFORD Department: Room: Gender: M Emr Specialist: : 1975 Requested By: HEBER LLOYD Order Number: [id number] Reading MD: Measurements Intervals [place] Rate: 66 P: 46 [place]: 114 QRS: 21 QRSD: 98 T: 44 QT: 402 QTc: 423 Interpretive Statements SINUS RHYTHM QRS(T) CONTOUR ABNORMALITY CONSIDER ANTEROLATERAL MYOCARDIAL DAMAGE CONSIDER INFERIOR MYOCARDIAL DAMAGE POSSIBLY ABNORMAL ECG RI6.01 Unconfirmed report No previous ECG available for comparison
[2018-08-09] MEDS ORDERED: NAPR-683 PO (15:26)
[2018-08-09 16:16] LABS: % LYMPHS 15 % (24-48); % MONOS 3 % (0-10); % SEGS 82 % (35-66); ANISOCYTOSIS SLIGHT; OVALOCYTES OCC; PLT ESTIMATE INCREASED (ADEQUATE)
== END 2018-08-09 15:36 | disposition home or self-care (01) ==
LOC: ER 13:33
DX: R07.89 Other chest pain (principal); F19.10 Other psychoactive substance abuse, uncomplicated; R42 Dizziness and giddiness; R00.2 Palpitations; R11.0 Nausea; F41.9 Anxiety disorder, unspecified; F31.9 Bipolar disorder, unspecified; G43.909 Migraine, unspecified, not intractable, without status migrainosus; Z88.8 Allergy status to other drugs, medicaments and biological substances; Z88.5 Allergy status to narcotic agent; Z88.0 Allergy status to penicillin
CPT/HCPCS: 36415; 71046; 80053; 80307; 82550; 84484; 85007; 85025; 93005; 96374; 99285; J1885

== ENCOUNTER 2019-08-24 09:06 | Emergency (ER) | payer SELFPAY ==
[~2019-08-24] VITALS: Ht 167.6 cm; Wt 67.0 kg
[~2019-08-24 09:06] MED LIST changes: +LOPE-101 PO; -LOPE2CAP88 PO; +NAPR-683 PO; -TIZA2TAB PO; +TIZA2TAB4 PO
[2019-08-24] MEDS ORDERED: ONDANSETRON PF 4 MG/2 ML VIAL. IVP ONE ×2 (09:45→11:00)
[2019-08-24] MEDS ORDERED: MORPHINE SULFATE 10 MG/ML VIAL. IV ONE (09:45)
[2019-08-24] MEDS ORDERED: IV NORMAL SALINE 1000ML BAG 1,000 ML IV ONE (09:45)
[2019-08-24 09:53] LABS: BASO % 0 % (0-3); EOS % 0 % (0-3); HEMATOCRIT 45.1 % (39.0-53.0); HEMOGLOBIN 15.7 g/dL (13.0-17.5); LYMPH # 2.5 x10^3/uL (1.0-4.8); LYMPH % 20 % (24-48); MEAN CORPUSCULAR HEMOGLOBIN 31 pg (25-35); MEAN CORPUSCULAR HGB CONC 35 g/dL (31-37); MEAN CORPUSCULAR VOLUME 89 fL (79-100); MONO # 0.6 x10^3/uL (0.0-1.1); MONO % 5 % (0-9); NEUT # 9.6 x10^3/uL (1.8-7.7); NEUT % 75 % (31-73); PLATELET COUNT 419 x10^3/uL (140-400); RED BLOOD COUNT 5.07 x10^6/uL (4.30-5.70); RED CELL DISTRIBUTION WIDTH 13.6 % (11.5-14.5); WHITE BLOOD COUNT 12.9 x10^3/uL (4.0-11.0)
--- NOTE | 2019-08-24 09:56 | PHYS DOC ---
Past Medical History Past Medical History: Anxiety, Bipolar, Depression, Migraines Additional Past Medical Histor: "hernia" (epigastric area); Substance Abuse (METH, BENZOS, OPIATES) Past Surgical History: Other Additional Past Surgical Histo: LEFT HAND Smoking Status: Current Every Day Smoker Alcohol Use: Sober Drug Use: None Social History Narrative: last use 2 days ago General Adult EDM: Chief Complaint: NAUSEA/VOMITING/DIARRHA HPI: HPI: Patient is a 44 year old male who presents with abdominal pain and vomiting. Patient states this started 3 days ago with upper abdominal pain and multiple episodes of vomiting. He states the pain has gotten worse due to the vomiting and he is now having sharp shooting pains. Nothing makes it better. He has loss of appetite. Denies fever, chest pain, SOB, hematachezia, hematemsis. Review of Systems: Review of Systems: General: Denies fever, chills, sweats, fatigue Eyes: Denies drainage, blurred vision HENT: Denies rhinorrhea, sore throat Respiratory: Denies cough, shortness of breath, wheezing Cardiac: Denies edema, palpitations, chest pain GI: reports abdominal pain, N/V MSK: Denies back pain, neck pain Skin: Denies rash, jaundice Neuro: Denies headache, dizziness Psychiatric: Denies SI/HI Heart Score: Risk Factors: Risk Factors: DM, Current or recent (<one month) smoker, HTN, HLP, family history of CAD, obesity. Risk Scores: Score 0 - 3: 2.5% MACE over next 6 weeks - Discharge Home Score 4 - 6: 20.3% MACE over next 6 weeks - Admit for Clinical Observation Score 7 - 10: 72.7% MACE over next 6 weeks - Early Invasive Strategies Current Medications: Current Medications Medications (Trade) Dose Ordered Sig/Reina Start Time Stop Time Status Last Admin Dose Admin Morphine Sulfate (Morphine Sulfate) 5 mg 1X ONCE 08/24/19 09:45 08/24/19 09:46 DC Ondansetron HCl (Zofran) 4 mg 1X ONCE 08/24/19 09:45 08/24/19 09:46 DC Sodium Chloride 1,000 ml @ 0 mls/hr 1X ONCE 08/24/19 09:45 08/24/19 09:46 DC Allergies: Allergies: Allergies Coded Allergies Type Severity Reaction Last Updated Verified Benzodiazepines Allergy Intermediate 08/09/18 No Penicillins Allergy Intermediate 08/09/18 No codeine Allergy Intermediate 08/09/18 No cyclobenzaprine Allergy Intermediate 08/09/18 No Uncoded Allergies Type Severity Reaction Last Updated Verified steroids Adverse Reaction Unknown 09/26/13 Physical Exam: PE: Constitutional: Well developed, well nourished, Cooperative, NAD, non-toxic appearing HEENT: Normocephalic, atraumatic, oropharynx moist, EOMI, PERRL, no drainage from eyes, normal conjunctiva Neck: Supple, normal range of motion, no stridor Cardiovascular: RRR, 2+ radial pulses bilaterally, no edema Respiratory: CTA bilaterally, no respiratory distress, no wheezing/crackles Abdomen: Soft, nondistended, no masses, RUQ and epigastric tenderness, guarding Skin: Warm, dry, intact Extremities: No obvious deformities Neurologic: Alert and Oriented x3, motor and sensory function grossly normal, no focal deficits Psychologic: Normal affect, normal judgment, normal mood. No SI/HI Current Patient Data: Labs: Laboratory Tests Test 08/24/19 09:40 White Blood Count 12.9 x10^3/uL (4.0-11.0) H Red Blood Count 5.07 x10^6/uL (4.30-5.70) Hemoglobin 15.7 g/dL (13.0-17.5) Hematocrit 45.1 % (39.0-53.0) Mean Corpuscular Volume 89 fL (79-100) Mean Corpuscular Hemoglobin 31 pg (25-35) Mean Corpuscular Hemoglobin Concent 35 g/dL (31-37) Red Cell Distribution Width 13.6 % (11.5-14.5) Platelet Count 419 x10^3/uL (140-400) H Neutrophils (%) (Auto) 75 % (31-73) H Lymphocytes (%) (Auto) 20 % (24-48) L Monocytes (%) (Auto) 5 % (0-9) Eosinophils (%) (Auto) 0 % (0-3) Basophils (%) (Auto) 0 % (0-3) Neutrophils # (Auto) 9.6 x10^3/uL (1.8-7.7) H Lymphocytes # (Auto) 2.5 x10^3/uL (1.0-4.8) Monocytes # (Auto) 0.6 x10^3/uL (0.0-1.1) Eosinophils # (Auto) 0.0 x10^3/uL (0.0-0.7) Basophils # (Auto) 0.0 x10^3/uL (0.0-0.2) Laboratory Tests 08/24/19 09:40 Vital Signs: Vital Signs Date Time Temp Pulse Resp B/P (MAP) Pulse Ox O2 Delivery O2 Flow Rate FiO2 08/24/19 09:14 98.4 63 14 142/100 (114) 99 Room Air 98.4 EKG: EKG: [] Radiology/Procedures: Radiology/Procedures: [] Course & Med Decision Making: Course & Med Decision Making Pertinent Labs and Imaging studies reviewed. (See chart for details) Patient is a 44 year old male who presents to the Emergency Room complaining of upper abdominal pain, nausea, vomiting, and anorexia x 3 days. On exam, patient has upper abdominal tenderness with minimal guarding. He did have dry heaving in the Emergency Room. Ddx includes cholecystitis, pancreatitis, gastroenteritis, cyclic vomiting. Patient was given morphine, zofran, IVFs. CBC, BMP, US abdomen, lipase, UA were ordered to evaluate for intra-abdominal pathology. US negative. Work up negative. Patient requesting to leave. Left prior to discharge in[facility]. Adrian Disclaimer: Adrian Disclaimer: This electronic medical record was generated, in whole or in part, using a voice recognition dictation system. Departure Departure Impression: Primary Impression: Viral gastroenteritis Disposition: HOME, SELF-CARE Condition: IMPROVED Referrals: NO PCP (PCP) Justicifation of Admission Dx: Justifications for Admission: Justification of Admission Dx: N/A NUVIA VÁZQUEZ MD Aug 24, 2019 09:56
[2019-08-24 09:58] LABS: CALCIUM 9.5 mg/dL (8.5-10.1); CREATININE 1.3 mg/dL (0.7-1.3); POTASSIUM 3.6 mmol/L (3.5-5.1)
[2019-08-24 10:04] LABS: ALBUMIN 4.7 g/dL (3.4-5.0); ALBUMIN/GLOBULIN RATIO 1.4 (1.0-1.7); TOTAL BILIRUBIN 0.6 mg/dL (0.2-1.0); TOTAL PROTEIN 8.1 g/dL (6.4-8.2)
--- NOTE | 2019-08-24 10:29 | RAD ---
ABDOMEN LTD: 08/24/2019 9:39 AM Indication: 44 years old Male. Right upper quadrant abdominal pain Comparison: None. TECHNIQUE: Sonographic evaluation of the right upper quadrant was performed utilizing grayscale and color Doppler imaging. FINDINGS: Liver: Homogenous normal echotexture. There is hepatopedal flow within the portal venous system. Right hepatic lobe measures 14.0 cm. Biliary system: CBD measures 3 mm. There is no intrahepatic or extrahepatic biliary dilatation. Gallbladder: No gallstones, wall thickening or pericholecystic fluid. . Sonographic Pritchett sign: Negative Pancreas: Visualized head and uncinate process are unremarkable. Body and tail are not visualized. Right kidney: 10.3 x 4.7 x 4.3 cm. No hydronephrosis. Normal echotexture without focal mass or renal calculus. Free fluid:None. IVC is normal. IMPRESSION: No cholelithiasis or sonographic evidence for acute cholecystitis. Electronically signed by: Marlene Jay MD (08/24/2019 10:26 AM) MELISSA
[2019-08-24 10:57] LABS: BILIRUBIN,URINE NEGATIVE (NEG); CLARITY,URINE CLEAR; COLOR,URINE YELLOW; NITRITE,URINE NEGATIVE (NEG); PH,URINE 6.5 (<5.0-8.0); PROTEIN,URINE NEGATIVE (NEG-TRACE)
[2019-08-24 11:09] LABS: AMORPHOUS SEDIMENT,UR PRESENT /HPF; BACTERIA,URINE FEW /HPF (0-FEW); HYALINE CASTS, URINE FEW /HPF; RBC,URINE 0 /HPF (0-2); SQUAMOUS EPITHELIAL CELL,UR OCC /LPF
[2019-08-24 11:43] VITALS: BP 158/93
--- NOTE | 2019-08-24 12:34 | RAD ---
Three-view acute abdominal series. HISTORY: Abdominal pain, vomiting 3 views were taken for an acute abdominal series. Lungs are clear. Heart is normal in size. There is no pleural effusion. There is no free air on the upright view the abdomen. There are no abnormal air-fluid levels. There is a probable renal calculus on the left. Bowel pattern is unremarkable. IMPRESSION: 1. No acute chest disease. 2. Probable left renal calculus. 3. No bowel obstruction or other acute finding in the abdomen. Electronically signed by: Abrahan Soto MD (08/24/2019 12:31 PM) [id number]
== END 2019-08-24 12:40 | disposition home or self-care (01) ==
LOC: ER 09:06
DX: A08.4 Viral intestinal infection, unspecified (principal); F31.9 Bipolar disorder, unspecified; G43.909 Migraine, unspecified, not intractable, without status migrainosus; F41.9 Anxiety disorder, unspecified; F17.200 Nicotine dependence, unspecified, uncomplicated; Z88.0 Allergy status to penicillin; Z88.5 Allergy status to narcotic agent; Z88.8 Allergy status to other drugs, medicaments and biological substances
CPT/HCPCS: 36415; 74022; 76705; 80053; 81001; 83690; 85025; 96374; 96375; 96376; 99285; J2270; J2405; J7030

== ENCOUNTER 2020-08-16 12:44 | Emergency (ER) | payer SELFPAY ==
[~2020-08-16] VITALS: Ht 167.6 cm; Wt 72.0 kg
[~2020-08-16 12:44] MED LIST changes: +TIZA-58 PO; -TIZA2TAB4 PO
[2020-08-16 13:19] VITALS: BP 120/71
--- NOTE | 2020-08-16 13:53 | PHYS DOC ---
Past Medical History Past Medical History: Anxiety, Bipolar, Depression, Migraines Additional Past Medical Histor: "hernia" (epigastric area); Substance Abuse (METH, BENZOS, OPIATES) (ALEIDA ALSTON EXERCISE PHYSIOLOGY PROFESSOR) Past Surgical History: Other Additional Past Surgical Histo: LEFT HAND (ALEIDA ALSTON EXERCISE PHYSIOLOGY PROFESSOR) Smoking Status: Current Every Day Smoker Alcohol Use: Sober Drug Use: None Social History Narrative: "I'M CLEAN. USED TO DO DRUGS AND METH." (ALEIDA ALSTON EXERCISE PHYSIOLOGY PROFESSOR) General Adult EDM: Chief Complaint: LOWER EXT PAIN HPI: HPI: Patient is a 45 year old male who presents with patient states that for the last couple of weeks he has had sharp shooting and even burning left lower leg pain. He states is worse when he is up and walking. He states has been taking naproxen but is not quite cutting the pain. He denies any injury. Patient denies any numbness or tingling. He rates his discomfort a 6 out of 10. He states he is not wanting any kind of narcotic pain medication. (ALEIDA ALSTON EXERCISE PHYSIOLOGY PROFESSOR) Review of Systems: Review of Systems: Constitutional: Denies fever or chills. [] Eyes: Denies change in visual acuity. [] HENT: Denies nasal congestion or sore throat. [] Respiratory: Denies cough or shortness of breath. [] Cardiovascular: Denies chest pain or edema. [] GI: Denies abdominal pain, nausea, vomiting, bloody stools or diarrhea. [] : Denies dysuria. [] Musculoskeletal: Denies back pain or joint pain. + Left lower leg pain [] Integument: Denies rash. [] Neurologic: Denies headache, focal weakness or sensory changes. [] Endocrine: Denies polyuria or polydipsia. [] Lymphatic: Denies swollen glands. [] Psychiatric: Denies depression or anxiety. [] (ALEIDA ALSTON EXERCISE PHYSIOLOGY PROFESSOR) Heart Score: C/O Chest Pain: No Risk Factors: Risk Factors: DM, Current or recent (<one month) smoker, HTN, HLP, family history of CAD, obesity. Risk Scores: Score 0 - 3: 2.5% MACE over next 6 weeks - Discharge Home Score 4 - 6: 20.3% MACE over next 6 weeks - Admit for Clinical Observation Score 7 - 10: 72.7% MACE over next 6 weeks - Early Invasive Strategies ([facility]SREE RAISAURAV Law [facility]) Allergies: Allergies: Allergies Coded Allergies Type Severity Reaction Last Updated Verified Benzodiazepines Allergy Intermediate 08/09/18 No Penicillins Allergy Intermediate 08/09/18 No codeine Allergy Intermediate 08/09/18 No cyclobenzaprine Allergy Intermediate 08/09/18 No Uncoded Allergies Type Severity Reaction Last Updated Verified steroids Adverse Reaction Unknown 09/26/13 [facility] Physical Exam: PE: Constitutional: Well developed, well nourished, no acute distress, non-toxic appearance. [] HENT: Normocephalic, atraumatic, bilateral external ears normal, oropharynx [address], no oral exudates, nose normal. [] Eyes: PERRLA, EOMI, conjunctiva normal, no discharge. [] Neck: Normal range of motion, no tenderness, supple, no stridor. [] Cardiovascular:Heart rate regular rhythm, no murmur [] Lungs & Thorax: Bilateral breath sounds clear to auscultation [] Abdomen: Bowel sounds normal, soft, no tenderness, no masses, no pulsatile masses. [] Skin: Warm, dry, no erythema, no rash. [] Back: No tenderness, no CVA tenderness. [] Extremities: No tenderness, no cyanosis, no clubbing, ROM intact, no edema. [] Neurologic: Alert and oriented X 3, normal motor function, normal sensory function, no focal deficits noted. [] Psychologic: Affect normal, judgement normal, mood normal. Normal physical exam [] [facility] PROFESS[facility]) Current Patient Data: Vital Signs: Vital Signs Date Time Temp Pulse Resp B/P (MAP) Pulse Ox O2 Delivery O2 Flow Rate FiO2 08/16/20 13:19 97.6 82 12 120/71 (87) 98 Room Air [facility].6 [facility] EKG: EKG: [] [facility] Radiology/Procedures: Radiology/Procedures: [] [facility] Course & Med Decision Making: Course & Med Decision Making Pertinent Labs and Imaging studies reviewed. (See chart for details) See HPI. Alert and oriented x4. Ambulatory with a steady gait. Speaks in full clear sentences. Patient has worn down very old looking shoes with very worn down soles. There is no focal bony tenderness to his left castell[place]. There is no bruising, there is no swelling, no calf tenderness, no deformity, no extremity swelling. Skin pink warm and dry. No signs of infection or cellulitis. No abrasions or wounds. Pedal pulse strong present. Cap refill less than 2 seconds. Full range of motion of all joints. [] (ALEIDA ALSTON APRN) Dragon Disclaimer: Dragon Disclaimer: This electronic medical record was generated, in whole or in part, using a voice recognition dictation system. (ALEIDA ALSTON APRN) Departure Departure Impression: Primary Impression: Lower extremity pain Qualified Codes: M79.605 - Pain in left leg Disposition: HOME / SELF CARE / HOMELESS Condition: STABLE Referrals: NO PCP (PCP) Patient Instructions: Pain, Neuropathic Additional Instructions: Use [id number] lidocaine patch. Take naproxen. Follow-up with your primary care provider. Rest. Make sure you are wearing good shoes with good arch support. Attending Signature Attending Signature I have reviewed the PA/SWISS MACHINIST's note and plan of care. I was available for consultation as needed during the patient's visit in the emergency department. I agree with the clinical impression, plan, and disposition. (ARIANE ZAVALA DO) ALEIDA ALSTON APRN Aug 16, 2020 13:53 ARIANE ZAVALA DO Aug 17, 2020 14:37
== END 2020-08-16 14:07 | disposition home or self-care (01) ==
LOC: ER 12:44
DX: M79.662 Pain in left lower leg (principal); F41.9 Anxiety disorder, unspecified; F31.9 Bipolar disorder, unspecified; G43.909 Migraine, unspecified, not intractable, without status migrainosus; F17.200 Nicotine dependence, unspecified, uncomplicated; Z88.0 Allergy status to penicillin; Z88.5 Allergy status to narcotic agent; Z88.8 Allergy status to other drugs, medicaments and biological substances
CPT/HCPCS: 99281; 99282